=== PATIENT | male | born 1970 | race American Indian/Alaskan Native ===

== ENCOUNTER 2018-07-26 08:05 | Emergency (ER) | payer MEDICAID ==
[2018-07-26 08:11] VITALS: O2SAT 98
--- NOTE | 2018-07-26 09:25 | C.PDOC ---
History Of Present Illness 48 y/o male presents to the ER complaining of right ear bleeding which has been present for the past 2 days. Patient has bag with 10 Q tips with dot of blood on each of the tips. He reports that he placed the tips in the ear and he saw blood. Patient is also complaining about heel spur on right foot. He notes that he had an X-Ray in [place] and he thinks the "bone is coming through the heel." Denies having fever, chills, weakness, and numbness. Time Seen by Provider: 07/26/18 08:30 Chief Complaint (Nursing): ENT Problem History Per: Patient History/Exam Limitations: no limitations Onset/Duration Of Symptoms: Days Current Symptoms Are (Timing): Still Present Severity: Moderate Past Medical History Reviewed: Historical Data, Nursing Documentation, Vital Signs Vital Signs: Last Vital Signs Temp 98.4 F 07/26/18 08:07 Pulse 107 H 07/26/18 08:07 Resp 16 07/26/18 08:07 BP 147/87 07/26/18 08:07 Pulse Ox 98 07/26/18 08:07 - Medical History PMH: HTN Other Surgeries: Hx of surgeries Family History: States: No Known Family Hx - Social History Hx Alcohol Use: Yes (QUIT) Hx Substance Use: Yes (QUIT) - Immunization History Hx Tetanus Toxoid Vaccination: Yes Hx Influenza Vaccination: Yes Hx Pneumococcal Vaccination: Yes Review Of Systems Except As Marked, All Systems Reviewed And Found Negative. Constitutional: Negative for: Fever, Chills ENT: Positive for: Ear Discharge (blood) Musculoskeletal: Positive for: Other (heel spur on right foot) Neurological: Negative for: Weakness, Numbness Physical Exam - Physical Exam Appears: Non-toxic, No Acute Distress Skin: Warm, Dry, Other (callus to heel of right foot) Head: Atraumatic, Normacephalic Eye(s): bilateral: Normal Inspection Ear(s): Left: Normal, Right: Other (abrasion in ear canal) Nose: Normal Oral Mucosa: Moist Neck: Supple Chest: Symmetrical Cardiovascular: Rhythm Regular Respiratory: Normal Breath Sounds, No Rales, No Rhonchi, No Wheezing Extremity: Normal ROM Neurological/Psych: Oriented x3, Normal Speech Gait: Steady ED Course And Treatment O2 Sat by Pulse Oximetry: 98 (RA) Pulse Ox Interpretation: Normal Medical Decision Making Medical Decision Making: Plan: --Cortisporin Otic AD Disposition Counseled Patient/Family Regarding: Studies Performed, Diagnosis, Need For Followup - Disposition Referrals: 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 - Scribe Statement The provider has reviewed the documentation as recorded by the Karinaibe [facility] Provider Attestation All medical record entries made by the Scribe were at my direction and personally dictated by me. I have reviewed the chart and agree that the record accurately reflects my personal performance of the history, physical exam, medical decision making, and the department course for this patient. I have also personally directed, reviewed, and agree with the discharge instructions and disposition.
[2018-07-26 09:54] VITALS: BP 142/82; PULSE 98; RESP 18; TEMP 98.5
[2018-07-26] MEDS ORDERED: Neomycin/Polymyxin/Hydrocort Otic Soln BOTTLE AD SCH (10:00)
== END 2018-07-26 09:17 | disposition home or self-care (01) ==
LOC: C.ER 08:05
DX: S00.411A Abrasion of right ear, initial encounter (principal); X58.XXXA Exposure to other specified factors, initial encounter; M79.671 Pain in right foot